=== PATIENT | male | born 1995 | race Caucasian/White ===

== ENCOUNTER 2020-08-01 11:29 | Emergency (ER) | payer SELFPAY ==
[2020-08-01 11:39] VITALS: BP 139/78; PULSE 90; RESP 14; TEMP 36.3; O2SAT 98; BMI 19.3
--- NOTE | 2020-08-01 11:45 | W.ED.DENTAL ---
HPI - Dental/Oral General: Chief complaint: Dental/Oral Stated complaint: TOOTH PAIN, MIGRAINES Time Seen by Provider: 08/01/20 11:42 Source: patient Mode of arrival: ambulatory History of Present Illness: MD Complaint: tooth pain and tooth injury Location: Tooth # (9) Onset (ago): day(s) (1) Duration: constant Severity: severe Relieving factors: nothing Exacerbating factors: chewing and cold Context: history of dental caries and poor dental care Associated symptoms: Denies ear or mastoid pain, fever(s), gum swelling, odynophagia, sore throat or tongue swelling Treatment prior to arrival: oral analgesic Review of Systems General: Reports: 10 or more systems reviewed and unremarkable except in HPI and below Const: Denies: fever(s) Eyes: Denies: change in vision or blurry vision ENMT: Reports: dental pain; Denies: odynophagia or ear or mastoid pain Card: Denies: palpitations, irregular heart rhythm, edema or swelling of feet/ankles Resp: Denies: dyspnea, productive cough or non-productive cough GI: Denies: abdominal pain, nausea or vomiting : Denies: flank pain, dysuria, urinary frequency, urinary urgency or urinary hesitancy Musc: Denies: neck pain, back pain or extremity swelling Skin/Breast: Denies: rash, pruritus or erythema Neuro: Denies: headache(s), numbness in extremities or weakness in extremities Endo: Denies: polyuria, polydipsia or tired all the time All/Imm: Denies: tongue swelling Physical Exam Const: COMMON NORMALS: no acute distress, average body habitus, patient oriented x3, no limitations, healthy appearing, alert and well nourished HENMT: COMMON NORMALS: normocephalic, atraumatic and moist oral mucous membranes HEAD & SCALP: normocephalic and atraumatic TEETH & GINGIVA: Yes abnormal tooth and associated gingiva, Yes caries and Yes poor dentition OTHER: Multiple teeth with severe caries. Left upper incisor with a fracture but no exposed pulp. Gums are swollen and inflamed. Neck/C-Spine: COMMON NORMALS: no meningeal signs and no JVD Resp: COMMON NORMALS: normal respiratory effort, No retractions, No use of accessory muscles, clear to auscultation bilaterally and percussion normal AUSCULTATION: clear to auscultation bilaterally PERCUSSION: percussion normal Cardio: COMMON NORMALS: no JVD, regular rate, regular rhythm, S1 normal heart sound present, S2 normal heart sound present, No gallops present (Cardio), No clicks present (Cardio), No murmurs present (Cardio), No rub (Cardio) and Peripheral pulses 2+ throughout RATE: regular rate RHYTHM: regular rhythm HEART SOUNDS: S1 normal heart sound present and S2 normal heart sound present PERIPHERAL PULSES: Peripheral pulses 2+ throughout Neuro: COMMON NORMALS: patient oriented x3 SENSORIUM/ORIENTATION: Yes alert MENINGEAL SIGNS: Yes no meningeal signs Skin: COMMON NORMALS: no rashes or lesions noted, no wounds, turgor normal, no jaundice, no petechiae and no mottling GENERAL SKIN EXAM: no rashes or lesions noted and turgor normal Course Vital Signs: Vital signs: Vital Signs Temperature 97.3 F L 08/01/20 11:39 Pulse Rate 90 08/01/20 11:39 Respiratory Rate 14 08/01/20 11:39 Blood Pressure 139/78 08/01/20 11:39 Pulse Oximetry 98 08/01/20 11:39 MDM - Dental/Oral MDM Narrative: Medical decision making narrative: Patient with a dental fracture, severe dental caries, and gingivitis. He is given a prescription for antibiotics, pain medicine, and topical anesthesia. He is strongly encouraged to see a dentist and was given a list of available dentist in the area. Medical Records: Attestation: I reviewed the patient's medical records. Discharge Plan Discharge Patient Disposition: Home Clinical Impression: Dental caries, Acute gingivitis Fracture of tooth Qualifiers: Encounter type: initial encounter Fracture type: closed Qualified Code(s): S02.5XXA - Fracture of tooth (traumatic), initial encounter for closed fracture Condition: Stable Prescriptions: New clindamycin HCl 300 mg capsule 300 mg PO Q6H 7 Days Qty: 28 RF: 0 Lidocaine Viscous 2 % solution 1 applic mucous membrane Q4H PRN (Reason: pain) Qty: 100 RF: 0 tramadol 50 mg tablet 50 mg PO Q8H PRN (Reason: dental fracture) Qty: 12 RF: 0 Discharge Orders: Discharge ED (Routine); Ordered 08/01/20 Ordered By: Adegoke I Ranjit Discharge Diet: Usual diet Discharge Activity: Increase activity as tolerated Patient Instructions: Dental Caries (ED), Gingivitis (ED), Opioid Safety Activity Restrictions/Additional Instructions: Return for any new or worsening symptoms. Follow-up with your dentist as soon as possible as you need to have several teeth taken out. Take the medications as prescribed. Follow-up with your primary care provider within 1 week. Coding Level of Care Code ED Residential Program Worker for [facility] Levin
== END 2020-08-01 12:02 | disposition home or self-care (01) ==
PROVIDERS: Emergency Provider Family Medicine
DX: K02.9 Dental caries, unspecified (principal); K05.00 Acute gingivitis, plaque induced; S02.5XXA Fracture of tooth (traumatic), initial encounter for closed fracture; X58.XXXA Exposure to other specified factors, initial encounter
CPT/HCPCS: 99282

== ENCOUNTER 2021-12-19 10:01 | Emergency (ER) | payer SELFPAY ==
[2021-12-19 10:06] VITALS: BP 128/74; PULSE 105; RESP 20; TEMP 39.4; O2SAT 98; BMI 20.5
--- NOTE | 2021-12-19 10:10 | XRR_ITS ---
PROCEDURE INFORMATION: Exam: XR Chest Exam date and time: 12/19/2021 10:15 AM Age: 26 years old Clinical indication: Cough and dyspnea; Patient HX: SOB coughing x 3 days; Additional info: Dyspnea/cough TECHNIQUE: Imaging protocol: Radiologic exam of the chest. Views: 1 view. COMPARISON: No relevant prior studies available. FINDINGS: Lungs: Consolidation in the periphery of the right lower lung concerning for pneumonia. The remainder of the lung parenchyma is clear. Pleural spaces: No pneumothorax. No pleural effusion. Heart/Mediastinum: The cardiomediastinal silhouette is within normal limits. Bones/joints: Unremarkable. XR/XR chest 1V portable [id number] IMPRESSION: Consolidation in the periphery of the right lower lung concerning for pneumonia.
[2021-12-19] MEDS: sodium chloride 0.9% 1,000 ML 999 ML IV (10:35)
[2021-12-19 10:38] LABS: Basophils # 0.1 10^3/uL (0.0-0.1); Basophils % 0.5 %; Eosinophils % 0.1 %; Hematocrit 41.5 % (42.0-52.0); Lymphocytes # 1.2 10^3/uL (0.8-4.8); Lymphocytes % 12.7 %; Mean Corpuscular HGB Conc 36.1 g/dL (30.0-36.0); Mean Corpuscular Volume 80.3 fl (80-94); Mean Platelet Volume 10.2 fL (7.4-10.4); Monocytes # 0.9 10^3/uL (0.2-0.9); Monocytes % 9.4 %; Neutrophils % 76.9 %; Nucleated Red Blood Cells % 0 %; Platelet Count 160 10^3/cmm (130-400); Red Blood Count 5.17 10^6/uL (4.1-5.3); Red Cell Distribution Width 11.7 % (12.1-15.1); White Blood Count 9.6 10^3/uL (4.0-10.0)
[2021-12-19 10:39] VITALS: PULSE 103; O2SAT 99
[2021-12-19 10:52] LABS: Alanine Aminotransferase 28 U/L (0-41); Albumin Level 4.6 g/dL (3.5-5.2); Alkaline Phosphatase 65 IU/L (40-130); Anion Gap 17.7 (5-19); Aspartate Amino Transferase 31 U/L (0-40); Blood Urea Nitrogen 11 mg/dL (6-20); Calcium 9.1 mg/dL (8.5-10.5); Carbon Dioxide 21 mmol/L (22-29); Chloride 95 mmol/L (98-107); Globulin 2.8 g/dL (1.3-4.6); Glomerular Filtration Rate 72.1 mL/min (90-130); Glucose 112 mg/dL (65-115); Osmolality Calculated 270 mOsm/kg (285-295); Potassium 3.7 mmol/L (3.5-5.1); Sodium 130 mmol/L (136-145); Total Bilirubin 0.6 mg/dL (0.15-1.2); Total Protein 7.4 g/dL (6.6-8.7)
[2021-12-19 11:39] VITALS: BP 127/89; PULSE 106; O2SAT 98
[2021-12-19] MEDS: acetaminophen 500 mg Tablet 1000 MG PO (11:48)
[2021-12-19 12:06] LABS: Add Urine Microscopic? NO; Charge for UA Resulting for Rev
[2021-12-19 12:24] LABS: Bilirubin Urine Neg (Negative); Blood Urine Neg (Negative); Glucose Urine UA Norm (Normal); Ketones Urine Negative (Negative); Leukocyte Esterase Urine Negative (Negative); Nitrate Urine Negative (Negative); Protein Urine Neg (Negative); Sulfosalicylic Acid Urine Negative (Negative); Urine Appearance Clear (CLEAR); Urine Color Yellow (Yellow); Urobilinogen Urine Norm (Negative); pH Urine 8 (5-7)
[2021-12-19 12:30] VITALS: BP 116/50; PULSE 85; O2SAT 95
[2021-12-19 12:34] LABS: Adenovirus Not Detected (NOT DETECT); Chlamydia Pneumoniae Not Detected (NOT DETECT); Coronavirus 229E,HKU1,NL63,OC4 Not Detected (NOT DETECT); Human Metapneumovirus Not Detected (NOT DETECT); Human Rhinovirus/Enterovirus Not Detected (NOT DETECT); Influenza A Not Detected (NOT DETECT); Influenza A H1 Not Detected (NOT DETECT); Influenza A H1-2009 Not Detected (NOT DETECT); Influenza A H3 Not Detected (NOT DETECT); Influenza B Not Detected (NOT DETECT); Mycoplasma Pneumoniae Not Detected (NOT DETECT); Parainfluenza Virus Type 1 Not Detected (NOT DETECT); Parainfluenza Virus Type 2 Not Detected (NOT DETECT); Parainfluenza Virus Type 3 Not Detected (NOT DETECT); Parainfluenza Virus Type 4 Not Detected (NOT DETECT); Respiratory Syncytial Virus A Not Detected (NOT DETECT); Respiratory Syncytial Virus B Not Detected (NOT DETECT); SARS-COV-2 Not Detected (NOT DETECT)
[2021-12-19 13:00] VITALS: BP 130/59; PULSE 92; RESP 17; TEMP 37.8; O2SAT 95
[2021-12-19 13:28] VITALS: BP 130/59; PULSE 92; RESP 17; O2SAT 95
--- NOTE | 2021-12-19 15:56 | ED_ITS ---
HPI - Fever General: Chief Complaint: Fever Stated Complaint: fever, body pain, numb arms,lips/mouth Time Seen by Provider: 12/19/21 10:02 Source: patient Mode of arrival: ambulatory Limitations: no limitations History of Present Illness: 26 yo mal presentscomplaining of fever and cough. He is worried that he may have COVID's he had a coworker that he was around tested positive for COVID recently. Patient does smoke he occasionally uses albuterol. He has not had any anosmia no diarrhea. She appears fine diagnosed with COVID. MD elicited complaint: fever Onset (ago): day(s) Exacerbating factors: nothing Relieving factors: nothing Associated symptoms: Reports cough and nausea; Deny abdominal pain, flank pain, chills, chest pain, confusion, diarrhea, dysuria, extremity pain, headache(s), myalgias, nasal congestion, night sweats, rash, rhinorrhea, short of breath, sinus pain, stiffness, sore throat, vomiting or weight loss Treatments prior to arrival fever: none Review of Systems Const: Denies: fever(s), chills, fatigue, malaise or night sweats ENMT: Denies: nasal congestion or sinus pain Card: Denies: chest pain, palpitations or irregular heart rhythm Resp: Reports: dyspnea, non-productive cough and wheezing; Denies: productive cough GI: Reports: nausea; Denies: abdominal pain, vomiting or diarrhea : Denies: flank pain, difficulty urinating, dysuria, urinary frequency or urinary urgency Musc: Denies: extremity pain Skin/Breast: Denies: rash or pruritus Neuro: Denies: headache(s) or confusion PFS ED PFSH: Medical History (Updated 12/19/21 @ 16:23 by Jeffy Crum DO) No pertinent past medical history Surgical History (Updated 12/19/21 @ 16:23 by Jeffy Crum DO) No pertinent past surgical history Social History (Updated 12/19/21 @ 16:24 by Jeffy Crum DO) Smoking and tobacco status: current every day smoker Physical Exam Const: COMMON NORMALS: no acute distress GENERAL APPEARANCE: cooperative and comfortable ORIENTATION/CONSCIOUSNESS: Yes awake, Yes oriented to person, Yes oriented to place and Yes oriented to time HENMT: COMMON NORMALS: normocephalic, atraumatic and hearing grossly normal bilaterally HEAD & SCALP: normocephalic and atraumatic Neck/C-Spine: COMMON NORMALS: no JVD Resp: COMMON NORMALS: normal respiratory effort, No retractions, No use of accessory muscles and clear to auscultation bilaterally AUSCULTATION: clear to auscultation bilaterally Cardio: COMMON NORMALS: no JVD, regular rate, regular rhythm and No murmurs present (Cardio) RATE: regular rate RHYTHM: regular rhythm GI: COMMON NORMALS: Soft to palpation and No hepatosplenomegaly present AUSCULTATION: Yes normoactive bowel sounds PALPATION: Yes Soft to palpation, No Tenderness to palpation present (GI), No Guarding due to palpation present (GI) and Yes No hepatosplenomegaly present Extremity: COMMON NORMALS: normal to inspection, capillary refill normal, no clubbing, cyanosis or edema, no calf tenderness and no pedal edema Neuro: SENSORIUM/ORIENTATION: Yes oriented to person, Yes oriented to place and Yes oriented to time Skin: COMMON NORMALS: no rashes or lesions noted GENERAL SKIN EXAM: no rashes or lesions noted Course Vital Signs: Vital signs: Vital Signs Temperature 100.1 F H 12/19/21 13:00 Pulse Rate 92 12/19/21 13:28 Respiratory Rate 17 12/19/21 13:28 Blood Pressure 130/59 12/19/21 13:28 Pulse Oximetry 95 12/19/21 13:28 MDM - Fever Medical Decision Making COVID-negative patient does have pneumonia on his chest x-ray we will go and start him on Levaquin also use albuterol. Follow-up with primary care doctor next 2 to 3 days if he worsens return to the emergency room Medical Records I reviewed the patient's medical records. Lab Data I reviewed the patient's lab results. : 12/19/21 10:28 12/19/21 10:28 Radiology Impressions Chest X-Ray 12/19/21 10:10 IMPRESSION: Consolidation in the periphery of the right lower lung concerning for pneumonia. ADDENDUM: 12/19/21 1036 THIS REPORT CONTAINS FINDINGS THAT MAY BE CRITICAL TO PATIENT CARE. The findings were verbally communicated via telephone conference with JEFFY Stevenson at 10:32 AM T on 12/19/2021. The findings were acknowledged and understood. Laboratory Results WBC 9.6 10^3/uL (4.0-10.0) 12/19/21 10: RBC 5.17 10^6/uL (4.1-5.3) 12/19/21 10:28 Hgb 15.0 g/dL (11.7-16.6) 12/19/21 10:28 Hct 41.5 % (42.0-52.0) L 12/19/21 10:28 MCV 80.3 fl (80-94) 12/19/21 10:28 MCH 29.0 pg (28.0-34.0) 12/19/21 10: MCHC 36.1 g/dL (30.0-36.0) H 12/19/21 10: RDW 11.7 % (12.1-15.1) L 12/19/21 10:28 Plt Count 160 10^3/cmm (130-400) 12/19/21 10: MPV 10.2 fL (7.4-10.4) 12/19/21 10:28 Neut % (Auto) 76.9 % 12/19/21 10:28 Lymph % (Auto) 12.7 % 12/19/21 10:28 [place] % (Auto) 9.4 % 12/19/21 10:28 Eos % (Auto) 0.1 % 12/19/21 10:28 Baso % (Auto) 0.5 % 12/19/21 10:28 Neut # (Auto) 7.40 10^3/uL (1.8-7.7) 12/19/21 10:28 Lymph # (Auto) 1.2 10^3/uL (0.8-4.8) 12/19/21 10:28 [place] # (Auto) 0.9 10^3/uL (0.2-0.9) 12/19/21 10:28 Eos # (Auto) 0.0 10^3/uL (0.0-0.8) 12/19/21 10:28 Baso # (Auto) 0.1 10^3/uL (0.0-0.1) 12/19/21 10:28 Nucleated RBC % (auto) 0 % 12/19/21 10:28 Nucleated RBCs # 0.0 /100WBC 12/19/21 10:28 Sodium 130 mmol/L (136-145) L 12/19/21 10:28 Potassium 3.7 mmol/L (3.5-5.1) 12/19/21 10:28 Chloride 95 mmol/L (98-107) L 12/19/21 10:28 Carbon Dioxide 21 mmol/L (22-29) L 12/19/21 10:28 Anion Gap 17.7 (5-19) 12/19/21 10:28 BUN 11 mg/dL (6-20) 12/19/21 10:28 Creatinine 1.2 mg/dL (0.7-1.2) 12/19/21 10:28 GFR Calculation 72.1 mL/min (90-130) L 12/19/21 10:28 Glucose 112 mg/dL (65-115) 12/19/21 10:28 Calculated Osmolality 270 mOsm/kg (285-295) L 12/19/21 10:28 Calcium 9.1 mg/dL (8.5-10.5) 12/19/21 10:28 Total Bilirubin 0.6 mg/dL (0.15-1.2) 12/19/21 10:28 AST 31 U/L (0-40) 12/19/21 10:28 ALT 28 U/L (0-41) 12/19/21 10:28 Alkaline Phosphatase 65 IU/L (40-130) 12/19/21 10:28 Total Protein 7.4 g/dL (6.6-8.7) 12/19/21 10:28 Albumin 4.6 g/dL (3.5-5.2) 12/19/21 10:28 Globulin 2.8 g/dL (1.3-4.6) 12/19/21 10:28 Urine Color Yellow (Yellow) 12/19/21 11:50 Urine Appearance Clear (CLEAR) 12/19/21 11:50 Urine pH 8 (5-7) H 12/19/21 11:50 Ur Specific [place] 1.010 (1.005-1.030) 12/19/21 11:50 Urine Protein Neg (Negative) 12/19/21 11:50 Urine Glucose (UA) Norm (Normal) 12/19/21 11:50 Urine Ketones Negative (Negative) 12/19/21 11:50 Urine Blood Neg (Negative) 12/19/21 11:50 Urine Nitrate Negative (Negative) 12/19/21 11:50 Urine Bilirubin Neg (Negative) 12/19/21 11:50 Prot Sulfosalicylic Acd Negative (Negative) 12/19/21 11:50 Urine Urobilinogen Norm mg/dL (Negative) 12/19/21 11:50 Ur Leukocyte Esterase Negative (Negative) 12/19/21 11:50 Coronavirus 229E (PCR) Not detected (NOT DETECT) 12/19/21 10:37 SARS-CoV-2 (PCR) Not detected (NOT DETECT) 12/19/21 10:37 Discharge Plan Discharge Patient Disposition: Home Clinical Impression: Pneumonia Condition: Stable Prescriptions: New levofloxacin 750 mg tablet 750 mg PO DAILY Qty: 10 0RF albuterol sulfate 90 mcg/actuation HFA aerosol inhaler 2 inh INHALATION Q4H PRN (Reason: shortness of breath or wheezing) Qty: 18 0RF No Action Tylenol 325 mg Capsule 325 mg PO QID PRN (Reason: Pain) 0RF Erma-[place] Plus Cold-Flu 12.5-10-20-650 mg Powder In Packet 1 packet PO Q4H PRN (Reason: Cold Symptoms) 0RF Rx Instructions: DNExceed 5 doses/24h Discharge Orders: Discharge ED (Routine); Ordered 12/19/21 Ordered By: Jeffy Crum Discharge Diet: Usual diet Discharge Activity: Increase activity as tolerated Patient Instructions: Opioid Safety Activity Restrictions/Additional Instructions: Follow-up with your primary care doctor within the next 2 days. Coding Level of Care Code ED Short Order Fry Cook for D[facility] Levin
== END 2021-12-19 13:15 | disposition home or self-care (01) ==
PROVIDERS: Emergency Provider Family Medicine
DX: J18.9 Pneumonia, unspecified organism (principal); F17.210 Nicotine dependence, cigarettes, uncomplicated; Z20.822 Contact with and (suspected) exposure to COVID-19
CPT/HCPCS: 36415; 71045; 80053; 81003; 85025; 87040; 87635; 99283; J7030

== ENCOUNTER 2021-12-20 23:04 | Emergency (ER) | payer SELFPAY ==
[2021-12-20 23:13] VITALS: BP 140/87; PULSE 105; RESP 18; TEMP 37.3; O2SAT 97; BMI 20.5
--- NOTE | 2021-12-20 23:19 | W.ED.FEVER ---
HPI - Fever General: Chief Complaint: Fever Stated Complaint: fever/body aches/nausea Time Seen by Provider: 12/20/21 23:18 History of Present Illness: 26-year-old male patient comes in today with complaints of persistent shortness of breath and fevers. Patient reports he hallucinates when his fevers go up. Patient was seen yesterday and was started on Levaquin for right lower lobe pneumonia. Patient's been ill since last Sunday. Patient was started on scratch that patient appears unwell. Patient appears in no acute distress. Patient appears in no pain. Review of Systems General: Reports: 10 or more systems reviewed and unremarkable except in HPI and below Const: Reports: fever(s) Resp: Reports: dyspnea PFSH ED PFSH: Medical History (Updated 12/20/21 @ 23:47 by CAMERON Melissa) No pertinent past medical history Surgical History (Updated 12/19/21 @ 16:23 by Jeffy Crum DO) No pertinent past surgical history Social History (Updated 12/19/21 @ 16:24 by Jeffy Crum DO) Smoking and tobacco status: current every day smoker Physical Exam Const: COMMON NORMALS: alert HENMT: COMMON NORMALS: normocephalic HEAD & SCALP: normocephalic Neck/C-Spine: GENERAL: Yes normal visual inspection Resp: COMMON NORMALS: normal respiratory effort AUSCULTATION: diminished lung sounds Cardio: COMMON NORMALS: regular rhythm RATE: tachycardic RHYTHM: regular rhythm GI: COMMON NORMALS: non-tender Extremity: COMMON NORMALS: normal to inspection Neuro: SENSORIUM/ORIENTATION: Yes alert Skin: COMMON NORMALS: no rashes or lesions noted GENERAL SKIN EXAM: no rashes or lesions noted Course Vital Signs: Vital signs: Vital Signs Temperature 99.1 F 12/20/21 23:13 Pulse Rate 105 H 12/20/21 23:13 Respiratory Rate 18 12/20/21 23:13 Blood Pressure 140/87 12/20/21 23:13 Pulse Oximetry 97 12/20/21 23:13 MDM - Fever Medical Decision Making 26-year-old male patient comes in today with complaints of weakness, shortness of breath, and fevers. Patient was diagnosed with pneumonia yesterday. On exam patient has decreased air breath sounds in the lower lung shaw. Heart rates regular with some mild tachycardia 105. O2 saturations 97%. Differential diagnosis includes sepsis, pneumonia, dehydration. I feel the patient probably is dehydrated as of reduced turgor of the skin and dry oral mucosa. We will go ahead and give patient 1 L of IV normal saline and a dose of dexamethasone. Patient will continue with routine medications and Levaquin as ordered. Follow-up with primary care for worsening symptoms. Return to ER for new concerns. Patient was also given a work note. Discharge Plan Discharge Patient Disposition: Home Clinical Impression: Dehydration Pneumonia Qualifiers: Pneumonia type: due to unspecified organism Laterality: right Lung location: lower lobe of lung Qualified Code(s): J18.9 - Pneumonia, unspecified organism Condition: Stable Prescriptions: No Action Tylenol 325 mg Capsule 325 mg PO QID PRN (Reason: Pain) 0RF Erma-[place] Plus Cold-Flu 12.5-10-20-650 mg Powder In Packet 1 packet PO Q4H PRN (Reason: Cold Symptoms) 0RF Rx Instructions: DNExceed 5 doses/24h levofloxacin 750 mg tablet 750 mg PO DAILY Qty: 10 0RF albuterol sulfate 90 mcg/actuation HFA aerosol inhaler 2 inh INHALATION Q4H PRN (Reason: shortness of breath or wheezing) Qty: 18 0RF Discharge Orders: Discharge ED (Routine); Ordered 12/20/21 Ordered By: Odin Adames Discharge Diet: Usual diet Discharge Activity: Increase activity as tolerated Patient Instructions: Opioid Safety Activity Restrictions/Additional Instructions: Continue medications as directed. Activity as tolerated. Drink plenty of fluids. Follow-up with primary care in 2 to 3 days for recheck. Return to ER for worsening shortness of breath or new concerns. Stand Alone Forms: Work/School Release Coding Level of Care Code ED Therapist Occupational for [facility] Levin
[2021-12-21] MEDS: dexamethasone 10 mg/mL INJ IVP (00:09)
[2021-12-21] MEDS: sodium chloride 0.9% 1,000 ML 999 ML IV (00:10)
[2021-12-21 01:09] VITALS: BP 131/71; PULSE 99; TEMP 37; O2SAT 96
== END 2021-12-21 01:10 | disposition home or self-care (01) ==
PROVIDERS: Emergency Provider Nurse Practitioner Family
DX: E86.0 Dehydration (principal); J18.9 Pneumonia, unspecified organism; F17.200 Nicotine dependence, unspecified, uncomplicated
CPT/HCPCS: 96374; 99284; J1100; J7030